=== PATIENT | male | born 1955 | race Caucasian/White ===

== ENCOUNTER → 2016-10-06 | Outpatient (REF) | payer OTHER ==
[~2016-10-06] MED LIST: COLA100C3 PO; CRES10TA32 PO; PERCOCET PO; ZYRT10CA PO
[2016-10-06 19:06] LABS: ALBUMIN 3.7 GM/DL (3.2-5.2); ALBUMIN/GLOBULIN RATIO 1.23 (1.00-1.93); ALKALINE PHOSPHATASE 81 U/L (45-117); ALT/SGPT 49 U/L (12-78); ANION GAP 7 MEQ/L (8-16); AST/SGOT 26 U/L (15-37); BILIRUBIN,TOTAL 0.4 MG/DL (0.2-1.0); BLOOD UREA NITROGEN 18 MG/DL (7-18); CALCIUM LEVEL 8.8 MG/DL (8.8-10.2); CARBON DIOXIDE LEVEL 28 MEQ/L (21-32); CHLORIDE LEVEL 105 MEQ/L (98-107); CHOLESTEROL LEVEL 173 MG/DL (<200); CREATININE FOR GFR 0.84 MG/DL (0.70-1.30); GLOMERULAR FILTRATION RATE > 60.0 (>49); GLUCOSE, FASTING 110 MG/DL (80-110); POTASSIUM SERUM 4.3 MEQ/L (3.5-5.1); SODIUM LEVEL 140 MEQ/L (136-145); TOTAL PROTEIN 6.7 GM/DL (6.4-8.2); TRIGLYCERIDES LEVEL 126 MG/DL (<150)
== END ==
LOC: M LABDRAW1 16:49
PROVIDERS: ATTEND Emergency Medicine
DX: Z00.00 Encounter for general adult medical examination without abnormal findings (principal); E78.2 Mixed hyperlipidemia; E55.9 Vitamin D deficiency, unspecified; R73.01 Impaired fasting glucose

== ENCOUNTER → 2018-01-09 | Outpatient (REF) | payer OTHER ==
[2018-01-09 12:51] LABS: ALBUMIN 3.6 GM/DL (3.2-5.2); ALBUMIN/GLOBULIN RATIO 1.16 (1.00-1.93); ALKALINE PHOSPHATASE 70 U/L (45-117); ALT/SGPT 53 U/L (12-78); ANION GAP 8 MEQ/L (8-16); AST/SGOT 29 U/L (7-37); BILIRUBIN,TOTAL 0.5 MG/DL (0.2-1.0); BLOOD UREA NITROGEN 21 MG/DL (7-18); CALCIUM LEVEL 8.4 MG/DL (8.8-10.2); CARBON DIOXIDE LEVEL 28 MEQ/L (21-32); CHLORIDE LEVEL 105 MEQ/L (98-107); CHOLESTEROL LEVEL 150 MG/DL (<200); CHOLESTEROL RISK RATIO 4.054 (<5); GLOMERULAR FILTRATION RATE > 60.0 (>49); GLUCOSE, FASTING 141 MG/DL (70-100); HDL CHOLESTEROL 37 MG/DL (>40); LDL CHOLESTEROL 86.2 MG/DL (<100); NON-HDL-C 113 MG/DL; POTASSIUM SERUM 4.2 MEQ/L (3.5-5.1); SODIUM LEVEL 141 MEQ/L (136-145); TOTAL PROTEIN 6.7 GM/DL (6.4-8.2); TRIGLYCERIDES LEVEL 134 MG/DL (<150)
[2018-01-09 13:01] LABS: TOTAL 25(OH) VITAMIN D 53.7 NG/ML (30.0-100.0)
[2018-01-09 13:47] LABS: ESTIMATED AVERAGE GLUCOSE 151 MG/DL (60-110); HEMOGLOBIN A1c 6.9 %
== END ==
LOC: M LABDRAW1 12:03
DX: E78.2 Mixed hyperlipidemia (principal); E55.9 Vitamin D deficiency, unspecified; R73.01 Impaired fasting glucose

== ENCOUNTER → 2018-05-08 | Outpatient (REF) | payer OTHER ==
[2018-05-08 17:42] LABS: BASO % 0.6 % (0.0-1.0); EOS # 0.1 10^3/uL (0.0-0.50); EOS % 1.1 % (0.0-3.0); HEMATOCRIT 49.1 % (42.0-52.0); HEMOGLOBIN 16.2 g/dl (13.5-17.5); IMMATURE GRANULOCYTE % 0.2 % (0-3.0); LYMPH # 1.3 10^3/uL (1.5-4.5); LYMPH % 23.6 % (24.0-44.0); MEAN CORPUSCULAR HEMOGLOBIN 30.5 pg (27.0-33.0); MEAN CORPUSCULAR VOLUME 92.5 fl (80.0-96.0); MONO # 0.5 10^3/uL (0.0-0.8); MONO % 9.9 % (0.0-5.0); NEUTROPHILS # 3.5 10^3/uL (1.8-7.7); NEUTROPHILS % 64.6 % (36.0-66.0); PLATELET COUNT, AUTOMATED 242 10^3/uL (150-450); RED BLOOD COUNT 5.31 10^6/uL (4.30-6.10); RED CELL DISTRIBUTION WIDTH 12.4 % (11.5-14.5); WHITE BLOOD COUNT 5.4 10^3/uL (4.0-10.0)
[2018-05-08 17:47] LABS: ANION GAP 5 MEQ/L (8-16); BLOOD UREA NITROGEN 21 MG/DL (7-18); C REACTIVE PROTEIN QUANTITATIV < 0.30 MG/DL (0.00-0.30); CALCIUM LEVEL 8.6 MG/DL (8.8-10.2); CARBON DIOXIDE LEVEL 31 MEQ/L (21-32); CHLORIDE LEVEL 104 MEQ/L (98-107); CREATININE FOR GFR 0.96 MG/DL (0.70-1.30); GLOMERULAR FILTRATION RATE > 60.0 (>49); GLUCOSE, FASTING 105 MG/DL (70-100); POTASSIUM SERUM 4.4 MEQ/L (3.5-5.1); SODIUM LEVEL 140 MEQ/L (136-145)
[2018-05-08 18:03] LABS: ESTIMATED AVERAGE GLUCOSE 134 MG/DL (60-110); HEMOGLOBIN A1c 6.3 %
[2018-05-08 19:03] LABS: ERYTHROCYTE SEDIMENTATION RATE 4 mm/hr (0-20)
== END ==
LOC: M LAB REF 13:35
DX: L03.012 Cellulitis of left finger (principal)

== ENCOUNTER → 2018-07-24 | Outpatient (REF) | payer OTHER ==
[~2018-07-24] MED LIST changes: -COLA100C3 PO; +COLA100C5 PO
[2018-07-24 14:51] LABS: CREATININE, URINE 38.5 MG/DL; MALB URINE SIEMENS 5.2 MG/L; MAU/CREAT RATIO 13.5 MCG/MG (0.0-30.0)
== END ==
LOC: M LAB REF 13:07
PROVIDERS: ATTEND Physician Assistant
DX: M54.5 Low back pain (principal)

== ENCOUNTER → 2018-10-30 | Outpatient (REF) | payer OTHER ==
[~2018-10-30] MED LIST changes: +CRES10TA PO; -CRES10TA32 PO
[2018-10-30 13:13] LABS: BASO % 0.5 % (0.0-1.0); EOS # 0.1 10^3/uL (0.0-0.50); EOS % 2.8 % (0.0-3.0); HEMATOCRIT 49.3 % (42.0-52.0); HEMOGLOBIN 15.9 g/dl (13.5-17.5); LYMPH # 1.3 10^3/uL (1.5-4.5); LYMPH % 30.3 % (24.0-44.0); MEAN CORPUSCULAR HEMOGLOBIN 30.1 pg (27.0-33.0); MEAN CORPUSCULAR HGB CONC 32.3 g/dl (32.0-36.5); MEAN CORPUSCULAR VOLUME 93.4 fl (80.0-96.0); MONO # 0.5 10^3/uL (0.0-0.8); MONO % 10.4 % (0.0-5.0); NEUTROPHILS # 2.4 10^3/uL (1.8-7.7); NEUTROPHILS % 55.8 % (36.0-66.0); PLATELET COUNT, AUTOMATED 212 10^3/uL (150-450); RED BLOOD COUNT 5.28 10^6/uL (4.30-6.10); WHITE BLOOD COUNT 4.3 10^3/uL (4.0-10.0)
[2018-10-30 13:19] LABS: BLOOD UREA NITROGEN 22 MG/DL (7-18); CALCIUM LEVEL 8.6 MG/DL (8.8-10.2); CARBON DIOXIDE LEVEL 30 MEQ/L (21-32); CHLORIDE LEVEL 105 MEQ/L (98-107); CHOLESTEROL LEVEL 171 MG/DL (<200); CHOLESTEROL RISK RATIO 4.275 (<5); CREATININE FOR GFR 0.92 MG/DL (0.70-1.30); GLOMERULAR FILTRATION RATE > 60.0 (>49); GLUCOSE, FASTING 135 MG/DL (70-100); HDL CHOLESTEROL 40 MG/DL (>40); LDL CHOLESTEROL 112 MG/DL (<100); NON-HDL-C 131 MG/DL; POTASSIUM SERUM 4.6 MEQ/L (3.5-5.1); SODIUM LEVEL 138 MEQ/L (136-145); TOTAL 25(OH) VITAMIN D 42.4 NG/ML (30.0-100.0); TRIGLYCERIDES LEVEL 96 MG/DL (<150)
[2018-10-30 13:25] LABS: HEMOGLOBIN A1c 6.4 %
== END ==
LOC: M LABDRAW1 12:05
PROVIDERS: ATTEND Physician Assistant
DX: E11.9 Type 2 diabetes mellitus without complications (principal); E78.2 Mixed hyperlipidemia

== ENCOUNTER → 2019-08-01 | Outpatient (REF) | payer OTHER ==
[2019-08-01 14:39] LABS: HEMOGLOBIN A1c 6.3 %
[2019-08-01 14:53] LABS: ALBUMIN 3.8 GM/DL (3.2-5.2); ALT/SGPT 40 U/L (12-78); BILIRUBIN,TOTAL 0.6 MG/DL (0.2-1.0); BLOOD UREA NITROGEN 21 MG/DL (7-18); CALCIUM LEVEL 8.9 MG/DL (8.8-10.2); CARBON DIOXIDE LEVEL 31 MEQ/L (21-32); CHLORIDE LEVEL 105 MEQ/L (98-107); CHOLESTEROL LEVEL 158 MG/DL (<200); CREATININE FOR GFR 0.78 MG/DL (0.70-1.30); GLOMERULAR FILTRATION RATE > 60.0 (>49); GLUCOSE, FASTING 99 MG/DL (70-100); HDL CHOLESTEROL 44 MG/DL (>40); LDL CHOLESTEROL 99 MG/DL (<100); NON-HDL-C 114 MG/DL; POTASSIUM SERUM 4.2 MEQ/L (3.5-5.1); SODIUM LEVEL 139 MEQ/L (136-145); TOTAL PROTEIN 6.9 GM/DL (6.4-8.2); TRIGLYCERIDES LEVEL 73 MG/DL (<150)
[2019-08-01 15:01] LABS: CREATININE, URINE 52.6 MG/DL; MALB URINE SIEMENS < 5.0 MG/L; MAU/CREAT RATIO 9.5 MCG/MG (0.0-30.0)
== END ==
LOC: M LABDRAW1 12:52
PROVIDERS: ATTEND Physician Assistant Medical
DX: E11.9 Type 2 diabetes mellitus without complications (principal)

== ENCOUNTER → 2020-01-14 | Outpatient (CLI) | payer MEDICARE, OTHER ==
--- NOTE | 2020-01-14 13:44 | REP ---
Clinical: Solitary pulmonary nodule. Comparison: 12/14/2015. Technique: Axial noncontrast images from the thoracic inlet to the upper abdomen with coronal and sagittal re-formations. Findings: Few bilateral pulmonary mass lesions are identified measuring up to 2.9 cm at the basilar right middle lobe and 2.6 cm in the mid right upper lobe as well as 1.2 cm lesion in the left upper lobe and a 1.1 cm lesion in the subpleural right lower lobe. Findings are most concerning for metastatic disease. Chronic infrahilar bronchiectasis and left lower lobe scarring are also appreciated. No effusion. No significant axillary, hilar, or mediastinal adenopathy noted. Further evaluation of the mediastinum demonstrates relatively normal thoracic aorta, pulmonary vasculature, and heart/pericardium. Musculoskeletal structures are intact. Limited upper abdomen demonstrates normal bilateral adrenal glands. Impression: At least four pulmonary lesions as described above measuring up to 2.9 cm maximal diameter and concerning for metastatic disease. Correlation including pulmonary consultation, PET-CT and/or biopsy should be considered. Electronically Signed by Gaurav Haines MD 01/14/2020 01:35 P
== END ==
LOC: M RAD 13:03
PROVIDERS: ATTEND Physician Assistant
DX: R91.1 Solitary pulmonary nodule (principal)

== ENCOUNTER → 2020-01-20 | Outpatient (REF) | payer MEDICARE, OTHER ==
[2020-02-14 20:30] LABS: BASO % 0.5 % (0.0-1.0); EOS # 0.1 10^3/uL (0.0-0.5); EOS % 1.7 % (0.0-3.0); HEMATOCRIT 46.5 % (42.0-52.0); HEMOGLOBIN 15.1 g/dl (13.5-17.5); LYMPH # 1.3 10^3/uL (1.5-5.0); LYMPH % 22.6 % (24.0-44.0); MEAN CORPUSCULAR HEMOGLOBIN 29.7 pg (27.0-33.0); MEAN CORPUSCULAR HGB CONC 32.5 g/dl (32.0-36.5); MEAN CORPUSCULAR VOLUME 91.5 fl (80.0-96.0); MONO # 0.6 10^3/uL (0.0-0.8); MONO % 10.1 % (0.0-5.0); NEUTROPHILS # 3.7 10^3/uL (1.5-8.5); NEUTROPHILS % 64.9 % (36.0-66.0); PLATELET COUNT, AUTOMATED 235 10^3/uL (150-450); RED BLOOD COUNT 5.08 10^6/uL (4.30-6.10); WHITE BLOOD COUNT 5.8 10^3/uL (4.0-10.0)
[2020-02-14 20:32] LABS: PARTIAL THROMBOPLASTIN TIME 31.4 SECONDS (25.0-38.4); PROTHROMBIN TIME 13.4 SECONDS (11.8-14.0)
[2020-03-26 11:15] LABS: GLUCOSE, FASTING SEE SEPARATE REPORT MG/DL (70-100)
== END ==
LOC: M LAB REF 12:44
PROVIDERS: ATTEND Internal Medicine Pulmonary Disease
DX: R91.8 Other nonspecific abnormal finding of lung field (principal)

== ENCOUNTER 2020-01-27 09:18 | Inpatient (IN) | payer MEDICARE, OTHER ==
[~2020-01-27 09:18] MED LIST changes: +CETACAINE SPRAY 5GM As Ordered ONE; +EPINEPHrine 1MG/10ML SYRINGE 1.5IN As Ordered ONE; +LIDOCAINE 1% SDV 30ML VIAL As Ordered ONE; +LIDOCAINE 2% 100MG/5ML SDV (FOR ANES.) ONE; +LIDOCAINE VISCOUS 2% SOLN 15ML UDC As Ordered ONE; +MIDAZOLAM INJ 2MG/2ML VIAL (J2250 PER 1MG) ONE; +ROCURONIUM BROMIDE 50 MG/5 ML VIAL ONE; +fentaNYL 100 MCG/2 ML INJECTION (J3010) ONE; +propofoL 200 MG/20 ML VIAL ONE
[2020-01-27] MEDS ORDERED: ALBUTEROL 6.7GM INHALER **FOR ANES. CART/OMNICELL ONLY ONE ×2 (09:59)
[2020-01-27] MEDS ORDERED: KETOROLAC 60MG 2ML VIAL ONE ×2 (10:07)
[2020-01-27] MEDS ORDERED: METOCLOPRAMIDE INJ 10MG/2ML VIAL (J2765 PER 1) ONE ×2 (10:07)
[2020-01-27] MEDS ORDERED: ONDANSETRON 4MG/2ML VIAL ONE ×2 (10:07)
[2020-01-27] MEDS ORDERED: SUGAMMADEX SODIUM 500 MG/5 ML VIAL (BRIDION) ONE (10:14)
[2020-01-27] MEDS ORDERED: ROCURONIUM BROMIDE 50 MG/5 ML VIAL ONE (10:19)
[2020-01-27] MEDS ORDERED: fentaNYL 100 MCG/2 ML INJECTION (J3010) ONE ×2 (10:43→11:52)
[2020-01-27] MEDS ORDERED: MIDAZOLAM INJ 2MG/2ML VIAL (J2250 PER 1MG) ONE (10:59)
[2020-01-27] MEDS ORDERED: BUPIVACAINE HCL 0.5% 10ML VIAL As Ordered ONE (11:10)
[2020-01-27] MEDS ORDERED: BUPIVACAINE LIPOSOME/PF 1.3% 20ML VIAL (13.3MG/ML)(EXPAREL)(C9290 PER1MG) As Ordered ONE (11:10)
[2020-01-27] MEDS ORDERED: fentaNYL 100 MCG/2 ML INJECTION (J3010) As Ordered ONE (11:52)
[2020-01-27] MEDS ORDERED: oxyCODONE 5MG TAB ONE ×2 (11:52→12:24)
[2020-01-27] MEDS ORDERED: oxyCODONE 5MG TAB As Ordered ONE ×2 (11:52→12:24)
[2020-01-27] MEDS ORDERED: ACETAMINOPHEN TAB 650MG DOSE (2X325MG) As Ordered ONE (15:01)
[2020-01-27] MEDS ORDERED: ACETAMINOPHEN TAB 650MG DOSE (2X325MG) ONE (15:01)
[2020-01-27] MEDS ORDERED: KETOROLAC 30 MG/ML 1ML VIAL As Ordered ONE ×2 (16:25→21:00)
[2020-01-27] MEDS ORDERED: KETOROLAC 30 MG/ML 1ML VIAL ONE ×2 (16:25→21:00)
[2020-01-27] MEDS ORDERED: ROSUVASTATIN 10 MG TAB (CRESTOR) As Ordered ONE (21:01)
[2020-01-27] MEDS ORDERED: ROSUVASTATIN 10 MG TAB (CRESTOR) ONE (21:01)
[2020-01-28] MEDS ORDERED: KETOROLAC 30 MG/ML 1ML VIAL ONE ×2 (04:30→09:28)
[2020-01-28] MEDS ORDERED: KETOROLAC 30 MG/ML 1ML VIAL As Ordered ONE ×2 (04:30→09:28)
[2020-01-28] MEDS ORDERED: LIDOCAINE 1% MDV 20ML VIAL As Ordered ONE (13:05)
[2020-01-28] MEDS ORDERED: ACETAMINOPHEN TAB 650MG DOSE (2X325MG) As Ordered ONE ×2 (16:45→20:57)
[2020-01-28] MEDS ORDERED: ACETAMINOPHEN TAB 650MG DOSE (2X325MG) ONE ×2 (16:45→20:57)
[2020-01-28] MEDS ORDERED: ROSUVASTATIN 10 MG TAB (CRESTOR) ONE (20:52)
[2020-01-28] MEDS ORDERED: ROSUVASTATIN 10 MG TAB (CRESTOR) As Ordered ONE (20:52)
[2020-01-29] MEDS ORDERED: ACETAMINOPHEN TAB 650MG DOSE (2X325MG) As Ordered ONE ×2 (04:47→12:48)
[2020-01-29] MEDS ORDERED: ACETAMINOPHEN TAB 650MG DOSE (2X325MG) ONE ×3 (04:47→21:25)
[2020-01-29] MEDS ORDERED: ROSUVASTATIN 10 MG TAB (CRESTOR) ONE (21:25)
[2020-01-30] MEDS ORDERED: ACETAMINOPHEN TAB 650MG DOSE (2X325MG) ONE ×3 (05:55→21:43)
[2020-01-30] MEDS ORDERED: NYSTATIN 100,000 UNITS/GM TOPICAL PWD 15 GM ONE (08:00)
[2020-01-30] MEDS ORDERED: ROSUVASTATIN 10 MG TAB (CRESTOR) ONE (21:43)
[2020-01-30] MEDS ORDERED: ACETAMINOPHEN TAB 650MG DOSE (2X325MG) As Ordered ONE (21:43)
[2020-01-30] MEDS ORDERED: ROSUVASTATIN 10 MG TAB (CRESTOR) As Ordered ONE (21:44)
--- NOTE | 2020-03-04 11:26 | ROOR ---
Patient Name: Darrel Robles Procedure Date: 01/27/2020 7:38 AM Date of : 1955 Admit Type: Outpatient Age: 64 Room: Main OR Note Status: Blood Bank Assistant Override Attending MD: Ema John MD Procedure: Bronchoscopy Indications: Left upper lobe mass, Right upper lobe mass, Right middle lobe mass Providers: Ema John MD (Doctor) Referring MD: 1. No Referring Physician 1. No Referring Physician, Admin. (Referring MD) Requesting Physician: Medicines: General Anesthesia, Cetacaine topical, Lidocaine 2% applied to cords 1 mL, Albuterol nebulizer 2.5 mg Complications: Moderate sized asymptomatic pneumothorax on right Procedure: Pre-Anesthesia Assessment: - Prior to the procedure, a History and Physical was performed, and patient medications and allergies were reviewed. The patient's tolerance of previous anesthesia was also reviewed. The risks and benefits of the procedure and the sedation options and risks were discussed with the patient. All questions were answered, and informed consent was obtained. Prior Anticoagulants: The patient has taken no previous anticoagulant or antiplatelet agents. ASA Grade Assessment: II - A patient with mild systemic disease. After reviewing the risks and benefits, the patient was deemed in satisfactory condition to undergo the procedure. Time out was performed prior to procedure confirming correct patient and procedure The Bronchoscope was introduced through the mouth, via the endotracheal tube (the patient was intubated for the procedure) and advanced to the tracheobronchial tree of both lungs. The procedure was accomplished without difficulty. The patient tolerated the procedure well. Post procedure pneumothorax was noted on the right. Patient required emergent placement of a chest tube and due to emergent nature of procedure the consent was implied. Findings: The endotracheal tube is in good position. The visualized portion of the trachea is of normal caliber. The ac is sharp. The tracheobronchial tree was examined to at least the first subsegmental level. Bronchial mucosa and anatomy are normal; there are no endobronchial lesions, and no secretions. Robotic Electromagnetic navigation bronchoscopy was performed. The CT scan was used for planning purposes. A virtual bronchoscopic image was generated using the planning software and the ac and left main bronchus ac registration points were marked on the virtual image. The target in the posterior segment of the right upper lobe was marked. A mass approx 2.6 cm in size was found and a pathway was created. Robotic electromagnetic navigation phase was then begun to locate the target lesion(s). Target lesion was reported on navigational software. Unable to confirm lesion with fluoroscopy or endobronchial ultrasound. Fluoroscopic adjustments and re-navigation attempted. Transbronchial biopsies of a nodule were performed in the posterior segment of the right upper lobe using forceps and sent for histopathology examination. The procedure was guided by fluoroscopy and ultrasound. Transbronchial biopsy technique was selected because the sampling site was not visible endoscopically. Transbronchial needle aspirations of a nodule were performed in the posterior segment of the right upper lobe and sent for histopathology examination. The procedure was guided by fluoroscopy and ultrasound. Transbronchial needle aspiration technique was selected because the sampling site was not visible endoscopically. Estimated blood loss: minimal. Right sided pneumothorax noted on fluoroscopy. Full sterile technique was maintained. The right second intercostal space mid clavicular line was identified and the area was anesthetized using 1% lidocaine. An 18g needle with syringe was advanced over the rib into the pleural space with aspiration of air to confirm placement. A guidewire was advanced into the needle into the pleural space and the needle was removed. A scalpel was used to dilate subcutaenous tissue. A 14Fr Arrow chest tube catheter drain was advanced over the guidewire into the pleural space. The chest tube was connected to pleur-evac immediately. Correct placement confirmed with tidaling and air leak on Pleur-evac which was placed to suction. Chest tube was sutured in place. Impression: - Left upper lobe mass - Right upper lobe mass - Right middle lobe mass - The airway examination was normal. - Electromagnetic navigation bronchoscopy was performed. - Transbronchial lung biopsies were performed. - A transbronchial needle aspiration was performed. Recommendation: - 14 Fr Chest tube was placed on right side emergently using Seldinger technique . Another surgical chest tube was placed by Dr. Callahan and initial chest tube removed. Post chest tube CXR showed improvement in pneumothorax and air leak noted on pleurovac. Ema John MD 01/31/2020 3:52:13 PM Number of Addenda: 0 Note Initiated On: 01/27/2020 7:38 AM
[2020-03-18 20:08] LABS: HEMATOCRIT 42.6 % (42.0-52.0); HEMOGLOBIN 14.4 g/dl (13.5-17.5); MEAN CORPUSCULAR HEMOGLOBIN 30.1 pg (27.0-33.0); MEAN CORPUSCULAR HGB CONC 33.8 g/dl (32.0-36.5); MEAN CORPUSCULAR VOLUME 89.1 fl (80.0-96.0); PLATELET COUNT, AUTOMATED 192 10^3/uL (150-450); RED BLOOD COUNT 4.78 10^6/uL (4.30-6.10)
--- NOTE | 2020-03-19 07:27 | REP ---
CHEST X-RAY: HISTORY: Pneumothorax. COMPARISON: 11:00 AM from this same date. FINDINGS: In the interval since the prior study ,the endotracheal tube has been withdrawn. A right-sided chest tube is reinserted and the right lung is reinflated. There is a pulmonary nodule adjacent to the chest tube tract on the right measuring 2.8 cm in greatest diameter. There is no discernible pneumothorax on the current radiograph. There are old healed rib fractures bilaterally. The heart is not enlarged. The aorta is somewhat tortuous. MTDD
--- NOTE | 2020-03-19 07:30 | REP ---
CT-GUIDED RIGHT UPPER LOBE LUNG BIOPSY: The procedure was performed under the direct supervision of Dr. Tejada. The risks and benefits of the procedure were explained to the patient and informed consent was obtained. HISTORY: The patient has a history of a right upper lobe lung mass seen on a previous CT scan dated 01/14/20. PROCEDURE: The right upper lobe lung mass was localized using CT guidance. The skin was prepped and draped in a sterile fashion. 1% lidocaine was used as a local anesthetic. Using CT guidance, a 19/20 gauge coaxial needle biopsy system was inserted and advanced into the mass. 6 core biopsy samples were obtained and sent to the lab. The patient tolerated the procedure well and there were no immediate complications. After the appropriate amount of monitored convalescence, the patient was discharged from the department. ARLETTE
--- NOTE | 2020-03-19 07:38 | REP ---
PA CHEST X-RAY: SINGLE VIEW HISTORY: Post needle biopsy right upper lobe nodule under CT guidance. FINDINGS: A right-sided chest tube is seen at the apex. There is no discernible pneumothorax. The biopsy target nodular density in the right upper lobe is again seen. There is platelike atelectasis in the right base and left base. IMPRESSION: No post biopsy complication seen. Right chest tube in place. MTDD
--- NOTE | 2020-03-19 07:39 | REP ---
CHEST X-RAY: TWO VIEWS HISTORY: Right-sided pneumothorax. This report was delayed due to a malware attack on this facility. FINDINGS: Right apical chest tube remains in place. There is no visible pneumothorax. A right upper lobe pulmonary nodule is again seen. There is discoid atelectasis in the right base. Healed rib fractures are noted on the left. Monitoring electrodes are seen. There is some discoid atelectasis in the left perihilar region. The atelectactic changes are increased from the 01/27/2020 radiograph. MTDD
[2020-03-28 08:33] LABS: HEMATOCRIT 43.4 % (42.0-52.0); HEMOGLOBIN 14.1 g/dl (13.5-17.5); MEAN CORPUSCULAR HEMOGLOBIN 29.6 pg (27.0-33.0); MEAN CORPUSCULAR HGB CONC 32.5 g/dl (32.0-36.5); PLATELET COUNT, AUTOMATED 183 10^3/uL (150-450); RED BLOOD COUNT 4.77 10^6/uL (4.30-6.10); WHITE BLOOD COUNT 5.5 10^3/uL (4.0-10.0)
[2020-03-28 11:07] LABS: HEMATOCRIT 43.4 % (42.0-52.0); HEMOGLOBIN 14.6 g/dl (13.5-17.5); MEAN CORPUSCULAR HEMOGLOBIN 30.4 pg (27.0-33.0); MEAN CORPUSCULAR HGB CONC 33.6 g/dl (32.0-36.5); MEAN CORPUSCULAR VOLUME 90.2 fl (80.0-96.0); PLATELET COUNT, AUTOMATED 175 10^3/uL (150-450); RED BLOOD COUNT 4.81 10^6/uL (4.30-6.10); WHITE BLOOD COUNT 6.1 10^3/uL (4.0-10.0)
--- NOTE | 2020-03-30 15:22 | HPE ---
DATE OF ADMISSION: 01/27/2020 HISTORY OF PRESENT ILLNESS: Mr. 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 Patient had a routine CT done by his primary care provider which was abnormal. He had denied any new respiratory complaints or changes in his breathing. He had not noticed any increased shortness of breath or dyspnea on exertion, did not have any coughing or wheezing, no hemoptysis. He denied any chest pain, has not had any fevers or chills, no night sweats or weight loss. Patient also denied any recent respiratory illnesses as well. His review of systems was additionally negative for abdominal pain, nausea, or vomiting, and no blood in the stool or melena. He did not have any significant change in his bowel habits. He does report a history of previous diarrhea and lactose tolerance which he stated improved. Patient has had colonoscopies in the past, his last one was in 2011, and he was due for repeat evaluation by gastroenterology with a repeat colonoscopy this year, which he has not had yet. Patient does have a history of basal cell carcinoma of the skin and he follows up with [facility] in [place]. He has had a few lesions removed, most recently last year, and was due for a repeat skin examination in January of this year. Patient also denies any symptoms in terms of changes in urination, no bloody urination, no straining. He denies any palpable masses or abnormalities in his testes that he is aware of. He feels that he may have had prostate testing in the past, although does not report any recently. He is also a nonsmoker with only a few cigarettes in his teens. There is no family history of lung cancer as well. Patient does have some possible exposure history with his occupation. 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 He does have exposure currently to cielo as well as pesticides. 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 Patient was seen in our pulmonary clinic and the results of his CT were discussed. He had multiple rounded mass lesions with a large one in the right upper lobe measuring up to 2.6 cm, as well as another mass in the right middle lobe abutting the diaphragm measuring 2.9 cm. Patient was consented for a robotic electromagnetic navigational bronchoscopy with biopsy of this right upper lobe lesion for diagnosis. Patient tolerated the procedure well on Monday, but did have a complication of post-procedural right pneumothorax requiring emergent placement of a chest tube in the operating room (OR). Please see the separate procedure note for details of the procedure itself and for the chest tube. Patient did have significant air leak noted while on the ventilator and cardiothoracic surgery was consulted for a surgical chest tube to be placed, which he did have done with evacuation of the pneumothorax. His chest tube was continued to wall suction. Patient remained hemodynamically stable throughout the procedure as well as during the chest tube placement. He was able to be extubated and post-procedure denied any significant chest pain except for some slight discomfort. He will be admitted to the progressive care unit (PCU) for his post-procedure pneumothorax. PAST MEDICAL/SURGICAL HISTORY: 1. Hyperlipidemia. 2. Diabetes. 3. 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 4. Inguinal hernia surgery. 5. Basal cell carcinoma of the skin status post removal. 6. Adenoidectomy. 7. Cataract surgery. 8. Bilateral retinal detachment. HOME MEDICATIONS: - Crestor 5 mg daily -vitamin D - metformin 500 mg twice a day ALLERGIES: No known drug allergies. SOCIAL HISTORY: No significant smoking tobacco use. Rare cigarette use in his teens. No chewing tobacco use. Drinks approximately five beers a month. No illicit drug use. Patient has a cat, no birds in the home. 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 No hot tub exposure. 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 FAMILY HISTORY: Mother with history of dementia. Father with history of heart condition, arthritis. No family history of lung cancer. There is a paternal uncle with a history of colon cancer. PHYSICAL EXAMINATION: Vital signs: Afebrile, non-tachycardiac. Blood pressure 128/90, oxygen saturation 97% on nasal cannula at 2 liters a minute. General: Patient is somewhat drowsy, but awake and alert. He is not in any respiratory distress and is able to speak in complete sentences. HEENT: Normocephalic, atraumatic. Oropharynx without erythema or exudate. Mallampati is class IV. Neck: Supple, trachea is midline. There is no palpable adenopathy and there is no subcutaneous emphysema palpated. There is no cervical or supraclavicular adenopathy. Cardiac: Regular rate and rhythm, normal S1, S2, no murmurs appreciated. Pulmonary: Clear to auscultation bilaterally. There is no rales, rhonchi, or wheezes noted. There is a right chest tube in the anterior upper chest in the second intercostal space midclavicular. Abdomen: Soft, nontender, no palpable mass. Extremities: There is no significant lower extremity edema bilaterally. Pulses are present. There is no clubbing noted. IMAGING: Chest x-ray: Patients chest x-ray performed after placement of the surgical chest tube showed evacuation of the right-sided pneumothorax with the chest tube in appropriate position. His previously noted lung lesions in the right lung are noted. The left upper lobe nodule which was measured on the CT at 1.2 cm is not easily seen. ASSESSMENT AND PLAN: Mr. Robles is a 64-year-old male with a past medical history of hyperlipidemia, diabetes, previous solitary fibrous tumor in the left lung status post surgical resection who was seen as an outpatient for an abnormal CT. Patients CT had shown bilateral pulmonary nodules and mass lesions with a large lesion in the right upper lobe measuring 2.6 cm, as well as a mass in the basal part of the right middle lobe abutting the diaphragm measuring 2.9 cm. There was also a smaller nodule abutting the pleura in the right upper lobe and another nodule in the left upper lobe measuring approximately 1.2 cm. There is an area of focal bronchiectasis and linear scarring in the left lower lobe in the infrahilar region likely secondary to his previous surgery. Given the appearance of the lesions, there was some concern for malignancy, particularly a metastatic process. Other potential etiologies may be inflammatory or infectious, particularly given his occupational related exposure, a fungal etiology is possible as well. Patient was consented for robotic electromagnetic navigational bronchoscopy with biopsy of the lesion which he tolerated well. He had complications post-procedure of a large right- sided pneumothorax requiring placement of emergent chest tube for drainage. Patient did require replacement of the initial 14-Sami chest tube with a larger surgical chest tube for complete evacuation of his pneumothorax. The 14- Sami chest was then removed. His current chest tube is on wall suction and there is air leaking and tidaling noted. Post chest tube x-ray does show evacuation of the pneumothorax. Patient will be admitted to the progressive care unit (PCU) for his post-procedural pneumothorax. - Will continue chest tube to wall suction. Will decrease from -40 to -20 cm and continue with suction and daily posteroanterior (PA)/lateral chest x-ray. - Appreciate cardiothoracic surgery consult and followup. - During the procedure, patient was not thought to have adequate samples of his right upper lobe nodule. We therefore discussed a CT guided needle biopsy of the nodule in the right upper lobe while he has his chest tube in for any potential drainage of procedural pneumothorax that may occur with CT guided biopsy. Patient is agreeable to the procedure and there will be an order placed for the CT guided needle biopsy. - Will continue patients home medications except for his metformin. Will continue with fingerstick glucose checks and coverage before meals and nightly. - Will continue with nasal cannula supplementation for now and will wean off as tolerated to maintain oxygen saturation above 90%. - Will continue gentle hydration for 1 liter and then discontinue and advance his diet as tolerated today. - Will continue with pain control as needed. - Deep venous thrombosis (DVT) prophylaxis heparin. CODE STATUS: FULL CODE. MTDD
--- NOTE | 2020-04-02 11:39 | RO ---
Date of Operation: 01/27/2020 PREPROCEDURE DIAGNOSIS: Right pneumothorax. POSTPROCEDURE DIAGNOSIS: Right pneumothorax. SURGEON: Jules Callahan M.D. PROCEDURE: Insertion of a right anterior-superior chest tube. INDICATIONS FOR PROCEDURE: I was called to the operating room stat because of a large pneumothorax after a bronchoscopy. A small catheter had already been placed, but was kicking off. I, therefore, opted to place a #20 chest tube in the first intercostal space. DESCRIPTION OF PROCEDURE: The patient was already anesthetized. The site was prepped and draped in the usual sterile fashion. Incision was made above the previously placed catheter and a tunnel was created into the chest over the second rib into the first intercostal space. A #20 chest tube was placed without difficulty. It was connected to the Pleur-Evac and secured in the chest wall with 0-silk sutures. The patient tolerated the procedure well. Chest x-ray is pending. The catheter was removed. [facility]ITAL[facility]ico[facility]
--- NOTE | 2020-04-04 08:50 | IPN ---
DATE: 01/30/2020 SUBJECTIVE: I again attended Darrel Robles. Patient has been examined and chart reviewed. He is fairly comfortable today with just the tiniest of pleuritic twinge with a deep breath on the right chest. He was afebrile overnight. Vital sign sheet has been reviewed. Minimal drainage out of the chest tube with no air leak. OBJECTIVE: GENERAL: He is awake, alert, and appropriate. HEENT: Pupils react. Sclerae clear. Trachea midline. CHEST: Shows his right chest tube site to be clean and dry. Dressing intact. He has good bilateral air entry. No rub. No significant adventitious breath sounds are noted. CARDIAC: Regular with no murmur or gallop. Peripheral pulses palpable. No edema. ABDOMEN: Soft and nontender with active bowel sounds. No convincing organomegaly or masses. EXTREMITIES: Without cyanosis or clubbing. NEUROLOGIC: He is awake, alert, and appropriate. PSYCHIATRIC: Normal mood and affect. IMAGING: Chest x-ray just taken and results are currently unavailable. The computer system is still down here at [facility]. LABORATORY DATA: Available labs show a white blood cell count of 6.1, hemoglobin 14.6, platelet count 175,000, and no differential today. Sodium 143, K 4.2, chloride 109, CO2 of 28, BUN 16, creatinine 0.77. 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 Final pathology is pending from [facility]. IMPRESSION: * Pleurodynia status post pneumothorax requiring chest tube. * Right lung nodule status post biopsy. Pathology as outlined above. RECOMMENDATIONS: At this point, my hope is that he can have his chest tube removed today. Awaiting final word from thoracic surgery. If it is stable to be removed, he likely will be able to be discharged home today for follow-up next week with Dr. John to review his final path. His pain control is quite reasonable. My suspicion if that his pleurodynia will resolve completely once the chest tube is discontinued. He has no other active complaints at this time. We will await the outcome of the above. Further recommendations will be made in the progress record as new information becomes available. ARLETTE
--- NOTE | 2020-04-04 08:52 | IPN ---
DATE: 01/27/2020 I again attended Darrel Robles. He is quite comfortable today. He is sitting at the bedside chair. He was afebrile overnight. Blood pressure in the 120s to 140s. Heart rate in the 60s with a sinus mechanism. Chest tube shows no air leak this morning with minimal drainage. He did have a CT guided needle biopsy of his right-sided lung lesion yesterday, pathology is still pending. On exam, he is awake, alert, and appropriate. HEENT shows normocephalic, atraumatic, pupils reactive, sclerae clear, trachea is midline. Chest shows his right thoracostomy tube. Dressing is in place. Good bilateral air entry. No rubs. Cardiac exam is regular with no gallop. Peripheral pulses palpable, no edema. Abdomen: Soft, nontender with active bowel sounds. No hepatosplenomegaly or masses. Extremities: No cyanosis or clubbing. Neurologically: He is awake, alert, and appropriate. Psychiatric: General mood and affect. Chart has been reviewed. IMPRESSION: 1. Pleurodynia. 2. Pneumothorax status post biopsy. 3. Abnormal CT with lung masses/nodules. RECOMMENDATIONS: At this point, his pain control is reasonable. He is tolerating a regular diet. He did have a bowel movement. He has no other new complaints. He is only using Tylenol for pain at this point. I spoke with thoracic surgery this morning. With no air leak, likely his tube will be placed on water seal and hopefully can be discontinued tomorrow. We anxiously await his pathology. Hopefully, this will be able to be reviewed with him prior to his discharge. Otherwise, we will continue as outlined above. Further recommendations will be made in the progress records as new information becomes available. ARLETTE
--- NOTE | 2020-04-04 09:01 | IPN ---
DATE: 01/28/2020 I attended Darrel Robles this morning. The hospital computer system remains down. He is awake, alert, appropriate. He still has some pain in the right chest consistent with his chest tube. Chest tube still has a small intermittent air leak. Maximum temperature (T-max) overnight 99.6, blood pressure 110-126 systolic, respiratory rate 16-18 and unlabored, heart rate generally in the 70s to 80s with a sinus mechanism. On exam, he is awake, alert, appropriate. He does complain of some pain. HEENT shows his pupils reactive, sclerae clear, trachea is in the midline. Chest shows the right chest tube site dressing in place, no bleeding. Chest is reasonably symmetrically expansive. There may be a faint rub on the right. Left chest is clear. Cardiac exam is regular with no gallop. Peripheral pulses palpable, no edema. Abdomen soft, nontender with active bowel sounds. No convincing organomegaly or masses. Extremities no cyanosis or clubbing. Neurologically he is awake, alert, and appropriate. Psychiatric with normal mood and affect. White blood cell count this morning 6.7, hemoglobin 14.3, platelet count 198,000. Chemistries are currently pending. He has been nothing by mouth for his procedure. Chest x-ray also pending at the time of this dictation. IMPRESSION: 1. Pleurodynia status post pneumothorax with chest tube insertion. 2. Ongoing small air leak. 3. Right lung nodule, awaiting CT guided biopsy. 4. Non-insulin dependent diabetes mellitus. RECOMMENDATIONS: At this point, we await the CT guided needle biopsy which should be done today. Certainly, much safer now with the chest tube in place after his pneumothorax yesterday. Awaiting final pathology from the procedure yesterday, but at this point it appears the tissue obtained was not adequate for definitive diagnosis. We will continue to monitor his sugars. Pain control, at this point, is reasonable and we will augment that as needed. He still has a small air leak. Certainly, chest tube will need to remain in place until that is sealed. We will proceed as outlined above. Ulcer and deep venous thrombosis (DVT) prophylaxis in place. Further recommendations will be made in the progress records as new information becomes available. ARLETTE
[2020-04-05 14:07] LABS: HEMOGLOBIN 14.3 g/dl (13.5-17.5); MEAN CORPUSCULAR HEMOGLOBIN 30.1 pg (27.0-33.0); MEAN CORPUSCULAR HGB CONC 32.5 g/dl (32.0-36.5); MEAN CORPUSCULAR VOLUME 92.6 fl (80.0-96.0); PLATELET COUNT, AUTOMATED 198 10^3/uL (150-450); RED BLOOD COUNT 4.75 10^6/uL (4.30-6.10); WHITE BLOOD COUNT 6.7 10^3/uL (4.0-10.0)
--- NOTE | 2020-04-14 13:25 | REP ---
EXAM: CHEST X-RAY: TWO VIEWS. HISTORY: Solitary pulmonary nodule; pneumothorax. COMPARISON STUDY: CT exam 01/14/2020. FINDINGS: A right-sided pleural drainage catheter is noted in place. There is a moderate-sized right-sided pneumothorax with partial collapse of the right lung as a new finding. There are air bronchograms in the left base behind the heart as well. Endotracheal tube is seen at the level of the transverse aorta in good position. MTDD
[2020-04-20 10:22] LABS: BLOOD UREA NITROGEN 18 MG/DL (7-18); CALCIUM LEVEL 8.5 MG/DL (8.8-10.2); CARBON DIOXIDE LEVEL 29 MEQ/L (21-32); CHLORIDE LEVEL 107 MEQ/L (98-107); CREATININE FOR GFR 0.77 MG/DL (0.70-1.30); GLOMERULAR FILTRATION RATE > 60.0 (>49); GLUCOSE, FASTING 96 MG/DL (70-100); POTASSIUM SERUM 3.9 MEQ/L (3.5-5.1); SODIUM LEVEL 140 MEQ/L (136-145)
[2020-04-20 16:42] LABS: BLOOD UREA NITROGEN 16 MG/DL (7-18); CALCIUM LEVEL 8.3 MG/DL (8.8-10.2); CARBON DIOXIDE LEVEL 28 MEQ/L (21-32); CHLORIDE LEVEL 109 MEQ/L (98-107); CREATININE FOR GFR 0.77 MG/DL (0.70-1.30); GLOMERULAR FILTRATION RATE > 60.0 (>49); GLUCOSE, FASTING 95 MG/DL (70-100); POTASSIUM SERUM 4.2 MEQ/L (3.5-5.1); SODIUM LEVEL 143 MEQ/L (136-145)
[2020-04-21 11:48] LABS: BLOOD UREA NITROGEN 19 MG/DL (7-18); CALCIUM LEVEL 8.4 MG/DL (8.8-10.2); CARBON DIOXIDE LEVEL 29 MEQ/L (21-32); CHLORIDE LEVEL 106 MEQ/L (98-107); CREATININE FOR GFR 0.84 MG/DL (0.70-1.30); GLOMERULAR FILTRATION RATE > 60.0 (>49); GLUCOSE, FASTING 112 MG/DL (70-100); POTASSIUM SERUM 4.2 MEQ/L (3.5-5.1); SODIUM LEVEL 138 MEQ/L (136-145)
[2020-04-22 20:25] LABS: BLOOD UREA NITROGEN 19 MG/DL (7-18); CARBON DIOXIDE LEVEL 30 mmol/L (20-29); CHLORIDE LEVEL 107 MEQ/L (98-107); CREATININE FOR GFR 0.82 MG/DL (0.70-1.30); GLOMERULAR FILTRATION RATE > 60.0 (>49); GLUCOSE, FASTING 106 MG/DL (70-100); SODIUM LEVEL 139 MEQ/L (136-145)
[2020-04-22 20:26] LABS: CALCIUM LEVEL 8.3 MG/DL (8.8-10.2)
== END 2020-01-31 07:00 | disposition home or self-care (01) | DRG 204 ==
LOC: M SDC 09:18 → M PCU 16:40 → M SDC 01-31 10:50
PROVIDERS: ADMIT Internal Medicine Pulmonary Disease; ATTEND Internal Medicine Pulmonary Disease
PROC: 0W9930Z Drainage of Right Pleural Cavity with Drainage Device, Percutaneous Approach (ICD-10-PCS; principal; 2020-01-27)
PROC: 0W9930Z Drainage of Right Pleural Cavity with Drainage Device, Percutaneous Approach (ICD-10-PCS; 2020-01-30)
DX: R91.8 Other nonspecific abnormal finding of lung field (principal); I10 Essential (primary) hypertension; E78.5 Hyperlipidemia, unspecified; Z79.899 Other long term (current) drug therapy; E11.9 Type 2 diabetes mellitus without complications

== ENCOUNTER → 2020-02-11 | Outpatient (CLI) | payer MEDICARE, OTHER ==
[~2020-02-11] MED LIST changes: -CETACAINE SPRAY 5GM As Ordered ONE; -EPINEPHrine 1MG/10ML SYRINGE 1.5IN As Ordered ONE; -LIDOCAINE 1% SDV 30ML VIAL As Ordered ONE; -LIDOCAINE 2% 100MG/5ML SDV (FOR ANES.) ONE; -LIDOCAINE VISCOUS 2% SOLN 15ML UDC As Ordered ONE; -MIDAZOLAM INJ 2MG/2ML VIAL (J2250 PER 1MG) ONE; -ROCURONIUM BROMIDE 50 MG/5 ML VIAL ONE; -fentaNYL 100 MCG/2 ML INJECTION (J3010) ONE; -propofoL 200 MG/20 ML VIAL ONE
--- NOTE | 2020-03-19 07:54 | REP ---
WHOLE BODY PET CT SCAN Delay in reporting results from hospital computer system malfunction from malware/ ransomware. This study is performed for evaluation of four pulmonary nodules identified by chest CT on 01/14/2020. COMPARISON: There are noo comparison PET CT scans. Whole body scanning is performed from the skull base to the upper thighs. NECK AND SUPRACLAVICULAR AREAS: There are several foci of uptake in the tongue measuring up to 1 cm in diameter with maximal standard uptake value of 4.76. This is hypermetabolic. There are two hypermetabolic foci along the pharyngeal side garcia, one on the right and one on the left, posterior and just superior to the tongue measuring approximately 1 cm in diameter each with maximal standard uptake value of 4.85. This is hypermetabolic. This uptake may be within parapharyngeal nodes. There are no other foci in the neck or supraclavicular areas. CHEST: The right upper lobe lung nodule demonstrates a maximal standard uptake value of 3.05. This is borderline hypermetabolic. The right middle lobe nodule demonstrates a maximal standard uptake value of 2.9. This is borderline hypermetabolic. The right lower lobe lung nodule demonstrates a maximal standard uptake value of 1.1. This is nonhypermetabolic. The left lung nodule demonstrates a maximal standard uptake value of 1.18. This is nonhypermetabolic. There are chronic parenchymal scarring and atelectasis in the lower lobe of the left lung that has decreased in size from a remote chest CT of 12/14/2015. The maximal standard uptake value in this area is 1.59, nonhypermetabolic. There are no mediastinal foci. There are no hilar foci on the right or the left. There are no axillary foci on the right or the left. CHEST, ABDOMEN, AND UPPER THIGHS: There are no adrenal or hepatic foci. There are no foci otherwise. IMPRESSION: Some of the lung nodules are hypermetabolic and others are nonhypermetabolic as discussed above. There is multiple hypermetabolic foci in the tongue There is a single focus of hypermetabolic uptake along the right parapharyngeal wall and a single hypermetabolic focus in the left parapharyngeal wall. Tis uptake is possibly in pharyngeal lymph nodes. There are no hypermetabolic foci in the mediastinum, darrell, right or left axilla. No other hypermetabolic foci are identified. There is nonhypermetabolic uptake in the the left lung lower lobe where chronic changes are identified. The study is performed with 7.23 mCi of F18 FDG. MTDD
== END ==
LOC: M RADPRO 16:50 → M PLARAD 16:50
PROVIDERS: ATTEND Internal Medicine Pulmonary Disease
DX: C34.11 Malignant neoplasm of upper lobe, right bronchus or lung (principal)
CPT/HCPCS: 78815; A9552

== ENCOUNTER → 2020-02-13 | Outpatient (CLI) | payer MEDICARE, OTHER ==
[~2020-02-13] MED LIST changes: +PROHANCE 279.3MG/ML 15ML VIAL As Ordered ONE; +PROHANCE 279.3MG/ML 5ML VIAL As Ordered ONE
--- NOTE | 2020-02-13 12:58 | REPVR ---
PROCEDURE INFORMATION: Exam: MR Head Without and With Contrast Exam date and time: 02/13/2020 11:25 AM Age: 64 years old Clinical indication: Condition or disease; History of cancer (specify primary cancer site): ; Primary cancer: Lung CA; Additional info: Malignant neoplasm of upper lobe, right bronchus or lung TECHNIQUE: Imaging protocol: MR of the head without and with intravenous contrast. Contrast material: PROHANCE; Contrast volume: 17 ml; Contrast route: INTRAVENOUS (IV); COMPARISON: CT Head W/O FOLL BY WITH CONTR 03/09/2016 7:37 AM FINDINGS: Brain: There is no acute intracranial hemorrhage, cerebral edema, or midline shift. No restricted diffusion is present to suggest acute infarction. A developmental venous anomaly is noted in the left cerebellar hemisphere. No enhancing lesions were identified after the administration of contrast. Ventricles: No hydrocephalus. Bones/joints: Unremarkable. Sinuses: Normal as visualized. No acute sinusitis. Mastoid air cells: Normal as visualized. No mastoid effusion. Orbits: Unremarkable. Soft tissues: Unremarkable. IMPRESSION: No acute intracranial abnormality. Electronically signed by: Denis Morfin On 02/13/2020 12:58:31 PM
== END ==
LOC: M RAD 10:11
PROVIDERS: ATTEND Internal Medicine Pulmonary Disease
DX: C34.11 Malignant neoplasm of upper lobe, right bronchus or lung (principal)
CPT/HCPCS: 70553; A9576

== ENCOUNTER → 2020-02-14 | Outpatient (CLI) | payer MEDICARE, OTHER ==
[~2020-02-14] MED LIST changes: -PROHANCE 279.3MG/ML 15ML VIAL As Ordered ONE; -PROHANCE 279.3MG/ML 5ML VIAL As Ordered ONE
== END ==
LOC: M LAB 10:27
PROVIDERS: ATTEND Nurse Practitioner Family
DX: E11.9 Type 2 diabetes mellitus without complications (principal)

== ENCOUNTER → 2020-04-05 | Outpatient (CLI) | payer MEDICARE, OTHER | LOC: M LABSMTC 10:06 | DX: Z01.812 Encounter for preprocedural laboratory examination (principal); Z20.828 Contact with and (suspected) exposure to other viral communicable diseases; D49.2 Neoplasm of unspecified behavior of bone, soft tissue, and skin | CPT/HCPCS: C9803; U0003 ==

== ENCOUNTER → 2020-05-12 | Outpatient (CLI) | payer MEDICARE, OTHER ==
--- NOTE | 2020-05-12 10:40 | REP ---
INDICATION: HX RECURRENT FIBROUS TUMOR, TUMOR OF PLEURA. COMPARISON: 01/14/2020. TECHNIQUE: CT chest performed without the use of intravenous contrast. Sagittal and coronal reconstruction images are performed. FINDINGS: Lungs: There are postsurgical changes on the right, with interval resection of the 3 right lung nodules on the prior study. There is mild diffuse scattered linear scarring throughout the right lung with mild bronchiectasis. A left upper lobe nodule just below the level of the hilum has mildly increased in size currently measuring 1.4 cm, previously 1.0 cm in diameter. Otherwise the left lower lobe scarring and bronchiectasis appears stable. No new nodules seen bilaterally. Mediastinum: No gross adenopathy. Cherelle: No gross adenopathy. Axilla: No gross adenopathy. Pleura: Small right pleural effusion. Heart: Not enlarged. Thoracic aorta: No aneurysm. Upper abdominal structures: Grossly unremarkable. Visualized osseous structures: There are mild degenerative changes of the spine without compression deformity. IMPRESSION: Interval resection of 3 right lung nodules since the prior exam. Bilateral scarring and bronchiectasis again noted. The previously noted left upper lobe nodule has mildly increased in size from 1.0 cm to 1.4 cm in diameter. There is a small right pleural effusion. <Electronically signed by Gus Ramirez > 05/12/20 103
== END ==
LOC: M RAD 09:02
PROVIDERS: ATTEND Radiology Radiation Oncology
DX: R91.1 Solitary pulmonary nodule (principal); J47.9 Bronchiectasis, uncomplicated; J90 Pleural effusion, not elsewhere classified

== ENCOUNTER → 2020-06-17 | Outpatient (REF) | payer MEDICARE, OTHER | LOC: M LAB 21:45 | PROVIDERS: ATTEND Physician Assistant | DX: Z20.828 Contact with and (suspected) exposure to other viral communicable diseases (principal) ==

== ENCOUNTER → 2020-08-26 | Outpatient (CLI) | payer MEDICARE, OTHER ==
[2020-08-26 12:11] LABS: ALBUMIN 3.8 GM/DL (3.2-5.2); ALT/SGPT 33 U/L (12-78); BILIRUBIN,TOTAL 0.3 MG/DL (0.2-1.0); BLOOD UREA NITROGEN 20 MG/DL (7-18); CALCIUM LEVEL 9.4 MG/DL (8.8-10.2); CARBON DIOXIDE LEVEL 32 MEQ/L (21-32); CHLORIDE LEVEL 105 MEQ/L (98-107); CHOLESTEROL LEVEL 175 MG/DL (<200); CHOLESTEROL RISK RATIO 3.977 (<5); CREATININE FOR GFR 0.89 MG/DL (0.70-1.30); GLOMERULAR FILTRATION RATE > 60.0 (>49); GLUCOSE, FASTING 115 MG/DL (70-100); HDL CHOLESTEROL 44 MG/DL (>40); LDL CHOLESTEROL 111 MG/DL (<100); NON-HDL-C 131 MG/DL; POTASSIUM SERUM 4.4 MEQ/L (3.5-5.1); SODIUM LEVEL 139 MEQ/L (136-145); TRIGLYCERIDES LEVEL 98 MG/DL (<150)
[2020-08-26 12:20] LABS: MALB URINE SIEMENS 5.2 MG/L; MAU/CREAT RATIO 4.6 MCG/MG (0.0-30.0)
[2020-08-26 12:48] LABS: HEMOGLOBIN A1c 6.3 %
== END ==
LOC: M LAB 10:31
PROVIDERS: ATTEND Nurse Practitioner Family
DX: E11.9 Type 2 diabetes mellitus without complications (principal)

== ENCOUNTER → 2020-09-02 | Outpatient (CLI) | payer MEDICARE, OTHER ==
[2020-09-02 12:45] LABS: C REACTIVE PROTEIN QUANTITATIV < 0.30 MG/DL (0.00-0.30); RHEUMATOID FACTOR QUANT < 10.0 IU/ML (<15.0)
[2020-09-03 13:11] LABS: ANTINUCLEAR ANTIBODIES DIRECT Negative (Negative)
== END ==
LOC: M LAB 10:57
PROVIDERS: ATTEND Nurse Practitioner Family
DX: M15.0 Primary generalized (osteo)arthritis (principal)

== ENCOUNTER → 2021-09-17 | Outpatient (CLI) | payer MEDICARE, OTHER ==
[2021-09-17 16:25] LABS: CREATININE, URINE 80.1 MG/DL; MALB URINE SIEMENS < 5.0 MG/L; MAU/CREAT RATIO 6.2 MCG/MG (0.0-30.0)
== END ==
LOC: M LAB 15:14
PROVIDERS: ATTEND Family Medicine
DX: E11.9 Type 2 diabetes mellitus without complications (principal)

== ENCOUNTER → 2022-02-25 | Outpatient (CLI) | payer MEDICARE, OTHER ==
[2022-02-25 15:30] LABS: BASO % 0.4 % (0.0-1.0); EOS # 0.1 10^3/uL (0.0-0.5); EOS % 1.6 % (0.0-3.0); HEMATOCRIT 47.6 % (42.0-52.0); HEMOGLOBIN 15.5 g/dl (13.5-17.5); LYMPH # 1.6 10^3/uL (1.5-5.0); LYMPH % 21.5 % (24.0-44.0); MEAN CORPUSCULAR HEMOGLOBIN 29.2 pg (27.0-33.0); MEAN CORPUSCULAR HGB CONC 32.6 g/dl (32.0-36.5); MEAN CORPUSCULAR VOLUME 89.8 fl (80.0-96.0); MONO # 0.7 10^3/uL (0.0-0.8); MONO % 9.9 % (2.0-8.0); NEUTROPHILS # 4.9 10^3/uL (1.5-8.5); NEUTROPHILS % 66.2 % (36.0-66.0); PLATELET COUNT, AUTOMATED 236 10^3/uL (150-450); WHITE BLOOD COUNT 7.4 10^3/uL (4.0-10.0)
[2022-02-25 15:32] LABS: HEMOGLOBIN A1c 6.2 %
[2022-02-25 15:39] LABS: ALBUMIN 3.5 GM/DL (3.2-5.2); ALT/SGPT 34 U/L (12-78); BILIRUBIN,TOTAL 0.5 MG/DL (0.2-1.0); BLOOD UREA NITROGEN 15 MG/DL (7-18); CALCIUM LEVEL 8.9 MG/DL (8.8-10.2); CARBON DIOXIDE LEVEL 31 MEQ/L (21-32); CHLORIDE LEVEL 103 MEQ/L (98-107); CHOLESTEROL LEVEL 177 MG/DL (<200); CHOLESTEROL RISK RATIO 3.687 (<5); CREATININE FOR GFR 0.84 MG/DL (0.70-1.30); GLOMERULAR FILTRATION RATE > 60.0 (>49); GLUCOSE, FASTING 97 MG/DL (70-100); HDL CHOLESTEROL 48 MG/DL (>40); LDL CHOLESTEROL 113 MG/DL (<100); NON-HDL-C 129 MG/DL; POTASSIUM SERUM 4.2 MEQ/L (3.5-5.1); SODIUM LEVEL 137 MEQ/L (136-145); TOTAL PROTEIN 7.2 GM/DL (6.4-8.2); TRIGLYCERIDES LEVEL 79 MG/DL (<150)
== END ==
LOC: M LAB 14:22
PROVIDERS: ATTEND Family Medicine
DX: E11.9 Type 2 diabetes mellitus without complications (principal)

== ENCOUNTER → 2022-06-28 | Outpatient (CLI) | payer MEDICARE, OTHER | LOC: M PLAIMG 15:59 | PROVIDERS: ATTEND Registered Nurse | DX: R05.1 Acute cough (principal) ==

== ENCOUNTER → 2022-11-09 | Outpatient (CLI) | payer MEDICARE, OTHER ==
[2022-11-09 15:35] LABS: ALBUMIN 3.6 G/DL (3.2-5.2); ALKALINE PHOSPHATASE 85 U/L (46-116); ALT/SGPT 13 U/L (7.0-40); AST/SGOT 25 U/L (<34); BILIRUBIN,TOTAL 0.3 MG/DL (0.3-1.2); BLOOD UREA NITROGEN 14 MG/DL (9-23); CALCIUM LEVEL 8.8 MG/DL (8.3-10.6); CARBON DIOXIDE LEVEL 32 MMOL/L (20-31); CHLORIDE LEVEL 103 MMOL/L (98-107); CREATININE FOR GFR 0.85 MG/DL (0.70-1.30); GLOMERULAR FILTRATION RATE > 60.0 (>49); GLUCOSE, FASTING 93 MG/DL (74-106); POTASSIUM SERUM 4.6 MMOL/L (3.5-5.1); SODIUM LEVEL 139 MMOL/L (136-145); TOTAL PROTEIN 6.6 G/DL (5.7-8.2)
== END ==
LOC: M LAB 14:30
PROVIDERS: ATTEND Nurse Practitioner
DX: C34.90 Malignant neoplasm of unspecified part of unspecified bronchus or lung (principal)

== ENCOUNTER → 2022-12-30 | Outpatient (CLI) | payer MEDICARE, OTHER ==
[2022-12-30 12:17] LABS: BASO % 0.7 % (0.0-1.0); EOS # 0.3 10^3/uL (0.0-0.5); EOS % 7.6 % (0.0-3.0); HEMATOCRIT 50.8 % (42.0-52.0); HEMOGLOBIN 16.5 g/dl (13.5-17.5); LYMPH # 0.5 10^3/uL (1.5-5.0); LYMPH % 11.2 % (24.0-44.0); MEAN CORPUSCULAR HEMOGLOBIN 30.7 pg (27.0-33.0); MEAN CORPUSCULAR HGB CONC 32.5 g/dl (32.0-36.5); MEAN CORPUSCULAR VOLUME 94.4 fl (80.0-96.0); MONO # 0.6 10^3/uL (0.0-0.8); MONO % 14.4 % (2.0-8.0); NEUTROPHILS # 2.9 10^3/uL (1.5-8.5); NEUTROPHILS % 65.9 % (36.0-66.0); PLATELET COUNT, AUTOMATED 158 10^3/uL (150-450); RED BLOOD COUNT 5.38 10^6/uL (4.30-6.10); WHITE BLOOD COUNT 4.5 10^3/uL (4.0-10.0)
[2022-12-30 12:45] LABS: ALBUMIN 3.9 G/DL (3.2-5.2); ALKALINE PHOSPHATASE 90 U/L (46-116); ALT/SGPT 23 U/L (7.0-40); AST/SGOT 21 U/L (<34); BILIRUBIN,TOTAL 0.8 MG/DL (0.3-1.2); BLOOD UREA NITROGEN 18 MG/DL (9-23); CALCIUM LEVEL 9.9 MG/DL (8.3-10.6); CARBON DIOXIDE LEVEL 30 MMOL/L (20-31); CHLORIDE LEVEL 102 MMOL/L (98-107); CREATININE FOR GFR 0.93 MG/DL (0.70-1.30); CREATININE,RANDOM URINE 46.1 MG/DL; GLOMERULAR FILTRATION RATE > 60.0 (>49); GLUCOSE, FASTING 94 MG/DL (74-106); SODIUM LEVEL 138 MMOL/L (136-145); TOTAL PROTEIN 7.3 G/DL (5.7-8.2)
[2022-12-30 12:49] LABS: TOTAL PROTEIN,RANDOM URINE < 6.0 MG/DL (0.0-14.0)
== END ==
LOC: M LAB 11:31
PROVIDERS: ATTEND Internal Medicine Hematology & Oncology
DX: C34.90 Malignant neoplasm of unspecified part of unspecified bronchus or lung (principal); D49.2 Neoplasm of unspecified behavior of bone, soft tissue, and skin

== ENCOUNTER 2023-01-25 12:53 | Day surgery (SDC) | payer MEDICARE, OTHER ==
[~2023-01-25] VITALS: Ht 172.7 cm; Wt 81.1 kg
[~2023-01-25 12:53] MED LIST changes: +CALC600C3 PO; +KP F1200 PO; +METF500T13 PO; +NS 1,000 ML IV ONE; +ONDA-84 PO; +TEMO100C17 PO; +VITA100093 PO; +VITATAB73 PO
[2023-01-25] MEDS ORDERED: LIDOCAINE 2% 100MG/5ML SDV (FOR ANES.) As Ordered ONE (13:29)
[2023-01-25] MEDS ORDERED: propofoL 200 MG/20 ML VIAL As Ordered ONE (13:30)
[2023-01-25 15:30] VITALS: BP 124/89; O2SAT 96
== END 2023-01-25 15:36 | disposition home or self-care (01) ==
LOC: M OPP 12:53
PROVIDERS: ATTEND Internal Medicine Gastroenterology
DX: Z12.11 Encounter for screening for malignant neoplasm of colon (principal); D12.6 Benign neoplasm of colon, unspecified; K64.0 First degree hemorrhoids; K57.30 Diverticulosis of large intestine without perforation or abscess without bleeding; Z79.02 Long term (current) use of antithrombotics/antiplatelets; Z79.82 Long term (current) use of aspirin; Z79.84 Long term (current) use of oral hypoglycemic drugs

== ENCOUNTER → 2023-02-23 | Outpatient (CLI) | payer MEDICARE, OTHER ==
[~2023-02-23] MED LIST changes: -NS 1,000 ML IV ONE
[2023-02-23 11:03] LABS: CREATININE, URINE 105.2 MG/DL
[2023-02-23 11:05] LABS: CHOLESTEROL RISK RATIO 4.06 (<5); HDL CHOLESTEROL 42.6 MG/DL (>40); LDL CHOLESTEROL 107.6 MG/DL (<100); NON-HDL-C 130.4 MG/DL
[2023-02-23 11:05] LABS: MALB URINE SIEMENS < 3.0 MG/L; MAU/CREAT RATIO 2.8 MCG/MG (0.0-30.0)
[2023-02-23 11:34] LABS: HEMOGLOBIN A1c 5.9 % (4.0-6.0)
== END ==
LOC: M LAB 09:45
PROVIDERS: ATTEND Family Medicine
DX: E11.9 Type 2 diabetes mellitus without complications (principal); E78.2 Mixed hyperlipidemia

== ENCOUNTER → 2023-12-22 | Outpatient (CLI) | payer MEDICARE, OTHER ==
[~2023-12-22] VITALS: Ht 162.6 cm; Wt 65.5 kg
[~2023-12-22] MED LIST changes: +LIDOCAINE 1% MDV 20ML VIAL As Ordered ONE; +LIDOCAINE W/EPINEPHRINE 1% 20ML VIAL As Ordered ONE; +LORA-243 PO; +MAGN400T35 PO; +MIDAZOLAM INJ 2MG/2ML VIAL As Ordered ONE; +MM S100C PO; +REFR0.5D8 OU; +SENN-186 PO; +VITA-243 PO; +ceFAZolin 2 GM/D5W 50 ML IV BAG As Ordered ONE; +fentaNYL 100 MCG/2 ML INJECTION As Ordered ONE
[2023-12-22 07:20] VITALS: TEMP 97.2
[2023-12-22] MEDS: ceFAZolin SOD 2 GM in IV 1 EA IV ONE (07:38)
[2023-12-22] MEDS: NS 1,000 ML IV SCH (07:38)
[2023-12-22 07:47] LABS: HEMATOCRIT 25.4 % (42.0-52.0); HEMOGLOBIN 7.7 g/dl (13.5-17.5); MEAN CORPUSCULAR HEMOGLOBIN 32.9 pg (27.0-33.0); MEAN CORPUSCULAR HGB CONC 30.3 g/dl (32.0-36.5); MEAN CORPUSCULAR VOLUME 108.5 fl (80.0-96.0); PLATELET COUNT, AUTOMATED 155 10^3/uL (150-450); RED BLOOD COUNT 2.34 10^6/uL (4.30-6.10); WHITE BLOOD COUNT 3.3 10^3/uL (4.0-10.0)
[2023-12-22 08:02] LABS: INR 1.05; PROTHROMBIN TIME 13.4 SECONDS (12.5-14.5)
[2023-12-22 09:20] VITALS: BP 125/79; O2SAT 99
== END ==
LOC: M IRPRO 07:06
PROVIDERS: ATTEND Physician Assistant
DX: D49.2 Neoplasm of unspecified behavior of bone, soft tissue, and skin (principal)
CPT/HCPCS: 36561; 85027; 85610; 99152; 99153; C1769; J0690; J2250; J3010